=== PATIENT | female | born 1995 ===

== ENCOUNTER 2020-01-20 07:52 | Inpatient (IN) ==
[2020-01-20] MEDS ORDERED: Ondansetron 4 MG/2 ML VIAL IVP PRN (08:28)
[2020-01-20] MEDS ORDERED: Naloxone 0.4 MG/ML INJ IVP PRN (08:28)
[2020-01-20] MEDS ORDERED: Metoclopramide 10 MG/2 ML VIAL IVP PRN (08:28)
[2020-01-20] MEDS ORDERED: *HR* FentaNYL (PF) 100 MCG/2 ML VIAL IVP PRN (08:28)
[2020-01-20] MEDS ORDERED: Famotidine 20 MG/2 ML VIAL IVP PRN (08:28)
[2020-01-20] MEDS ORDERED: Ringers Solution, Lactated 1,000 ML IVC SCH (08:30)
[2020-01-20 10:08] LABS: Amphetamine Screen,Urine Negative ng/mL (Cutoff=1000); Barbiturate Screen,Urine Negative ng/mL (Cutoff=200); Benzodiazepines Screen,Urine Negative ng/mL (Cutoff=200); Cannabinoid Screen,Urine Negative ng/mL (Cutoff = 50); Cocaine Screen,Urine Negative ng/mL (Cutoff= 300); Opiate Screen,Urine Negative ng/mL (Cutoff=300); Phencyclidine Screen,Urine Negative ng/mL (Cutoff=25)
[2020-01-20 10:29] LABS: Basophils % 0.3 %; Eosinophils % 0.3 %; Hematocrit 33.3 % (35.3-44.9); Hemoglobin 10.8 g/dL (11.5-15.4); Immature Granulocytes % 0.5 % (0-4); Lymphocytes # 1.5 K/mcL (0.6-4.6); Lymphocytes % 15.7 %; Mean Corpuscular HGB Conc 32.4 g/dL (31.6-35.5); Mean Corpuscular Hemoglobin 27.1 pg (28.0-33.3); Mean Corpuscular Volume 83.7 fL (83.0-100.0); Mean Platelet Volume 11.6 fL (9.4-12.4); Monocytes # 0.6 K/mcL (0.0-1.3); Monocytes % 6.5 %; Neutrophils # 7.3 K/mcL (1.6-8.9); Platelet Count 255 K/mcL (140-400); Red Blood Count 3.98 M/mcL (3.82-4.97); Red Cell Distribution Width 13.9 % (11.5-14.5); Segmented Neutrophils % 76.7 %; White Blood Count 9.5 K/mcL (4.3-11.1)
[2020-01-20] MEDS ORDERED: miSOPROStoL 25 MCG TABLET PO STA (14:08)
[2020-01-21] MEDS ORDERED: *HR* FentaNYL (PF) 100 MCG/2 ML VIAL EP ONE (00:26)
[2020-01-21] MEDS ORDERED: EPHEDrine 50 MG/ML VIAL IVP PRN (00:26)
[2020-01-21] MEDS ORDERED: Ropivacaine/PF 0.2% 20 ML VIAL EP ONE (00:26)
[2020-01-21] MEDS ORDERED: Epidural Premix (fent/bupiv) 110 ML EP SCH (00:30)
[2020-01-21] MEDS ORDERED: Oxytocin 20 units/ LR 1000 mL 20 UNIT/1,000 ML BAG IVC SCH ×2 (02:15→16:32)
[2020-01-21] MEDS ORDERED: *HR* HYDROcodone/Acet 5/325 mg TABLET PO STA (13:53)
[2020-01-21] MEDS ORDERED: Lanolin 7 G OINT...G. TP PRN (16:32)
[2020-01-21] MEDS ORDERED: Benzocaine/Menthol 56 GM AEROSOL SPRAY TP PRN (16:32)
[2020-01-21] MEDS ORDERED: *HR* HYDROcodone/Acet 5/325 mg TABLET PO PRN (16:32)
[2020-01-21] MEDS: Ibuprofen 600 MG TABLET PO PRN (17:07)
[2020-01-21] MEDS: Acetaminophen 325 MG TABLET PO PRN (20:34)
[2020-01-22] MEDS: Ibuprofen 600 MG TABLET PO PRN ×3 (03:48→20:12)
[2020-01-22] MEDS: Acetaminophen 325 MG TABLET PO PRN ×2 (06:41→22:49)
[2020-01-22] MEDS: Prenatal Vit/FA 1 EACH TABLET PO SCH (07:20)
[2020-01-23] MEDS: Ibuprofen 600 MG TABLET PO PRN (03:55)
[2020-01-23] MEDS: Prenatal Vit/FA 1 EACH TABLET PO SCH (08:07)
[2020-01-23] MEDS: Acetaminophen 325 MG TABLET PO PRN (08:08)
[2020-01-23 08:15] VITALS: BP 118/76
== END 2020-01-23 12:00 | disposition home or self-care (01) | DRG 807 ==
LOC: 1NENULAB 07:52 → 1NENUOBS 01-21 16:26
PROVIDERS: ADMIT Obstetrics & Gynecology; ATTEND Obstetrics & Gynecology